=== PATIENT | male | born 2000 | race Caucasian/White ===

== ENCOUNTER 2025-02-12 20:44 | Emergency (ER) | payer BC ==
[2025-02-12] MEDS: Ketorolac 60 MG/2 ML SDV IM ONE (21:07)
== END 2025-02-12 21:09 | disposition home or self-care (01) ==
LOC: JD.ED 20:44
DX: K08.89 Other specified disorders of teeth and supporting structures (principal)
CPT/HCPCS: 96372; 99283; J1885; 99284